=== PATIENT | male | born 1955 | race Caucasian/White ===

== ENCOUNTER → 2018-03-21 | Outpatient (CLI) | payer BC, MEDICARE ==
--- NOTE | 2018-03-21 11:33 | XR ---
EXAMINATION TYPE: XR cervical spine comp DATE OF EXAM: 03/21/2018 COMPARISON: NONE HISTORY: Left shoulder numbness TECHNIQUE: Four views are submitted. FINDINGS: The odontoid is intact. There are no compression deformities. The prevertebral soft tissue structur es are within normal limits. Hypertrophic change and degenerative disc disease at levels C3-T1. Ther e is facet arthropathy. Foraminal encroachment C3-4 and C4-5 and C5-C6 bilaterally. IMPRESSION: 1. Multilevel degenerative disc disease and facet arthropathy with foraminal encroachment. Recommend follow-up MRI.
--- NOTE | 2018-03-21 11:34 | XR ---
EXAMINATION TYPE: XR thoracic spine complete DATE OF EXAM: 03/21/2018 COMPARISON: NONE HISTORY: Numbness Alignment is anatomic. There is no compression deformities. Vertebral body height and disc interspa alec are maintained. Multilevel hypertrophic change and degenerative disc disease noted. No compressi on deformities. Curvature the spine noted. Mild diffuse osteopenia. IMPRESSION: 1. Multilevel degenerative disc disease.
--- NOTE | 2018-03-21 11:35 | XR ---
EXAMINATION TYPE: XR chest 2V DATE OF EXAM: 03/21/2018 COMPARISON: NONE TECHNIQUE: PA and lateral views submitted. HISTORY: Pain and numbness FINDINGS: The lungs are clear and there is no pneumothorax, pleural effusion, or focal pneumonia. Hypertrophi c and degenerative disc disease of the spine noted. Hyperinflation suggests COPD. IMPRESSION: 1. No acute process.
== END | disposition home or self-care (01) ==
LOC: RADXRMAIN 10:37
PROVIDERS: ATTEND Internal Medicine Geriatric Medicine
DX: M51.34 Other intervertebral disc degeneration, thoracic region (principal); M50.33 Other cervical disc degeneration, cervicothoracic region; M46.92 Unspecified inflammatory spondylopathy, cervical region
CPT/HCPCS: 71046; 72050; 72072

== ENCOUNTER → 2021-02-04 | Outpatient (CLI) | payer MEDICARE ==
[~2021-02-04] MED LIST: REGADENOSON 0.4 MG/5 ML SYRINGE IV PRN
--- NOTE | 2021-02-04 11:26 | P.STRESS ---
- Stress Test Note Stress Test Results/Findings: Exam Performed: NM stress lexiscan cardiolite Exam Date: 02/04/21 Reason for Exam: ARRHYTHMIA Height: 6 ft 2 in Weight: 114 kg Protocol: LEXISCAN CARDIOLITE Stage: NA Duration of Exercise: NA Resting Heart Rate: 48 Resting Blood Pressure: 134/80 Maximum Achieved Heart Rate: 74 Maximum Achieved Blood Pressure: 142/79 85% PMHR: 133 100% PMHR: 156 METS: NA Technologist Comment: Stress Test Results/Findings: This is a 65-year-old gentleman with history of hyperglycemia smoking being evaluated for palpitations and cardiac arrhythmia. Stress data. Baseline EKG showed sinus bradycardia with a normal MO interval and QRS duration. Blood pressure at rest is 134/80 with pulse rate of 48. His tory and also Lexiscan was infused. Did not reveal significant changes from the baseline. Final impression: #1. Negative Lexiscan stress test #2. Report on the nuclear images to be provided by the radiologist
--- NOTE | 2021-02-04 13:26 | NM ---
EXAMINATION TYPE: NM stress lexiscan cardiolite DATE OF EXAM: 02/04/2021 COMPARISON: NONE HISTORY: Chest pain TECHNIQUE: After the intravenous administration of 9.8 mCi Tc 99m Sestamibi - Cardiolite resting SPE CT images acquired 45 minutes post injection. The patient received 0.4mg Lexiscan, 24.8 mCi Tc 99m Sestamibi - Stress images obtained [address] injection FINDINGS: Review of stress and rest SPECT images demonstrates no distinct perfusion abnormality. Gated analysi s shows normal wall motion with an estimated left ventricular ejection fraction of 41 %. IMPRESSION: No scintigraphic evidence for reversible ischemia.
--- NOTE | 2021-02-05 10:05 | ECHOS ---
Stress Test Results/Findings: Exam Performed: NM stress lexiscan cardiolite Exam Date: 02/04/21 Reason for Exam: ARRHYTHMIA Height: 6 ft 2 in Weight: 114 kg Protocol: LEXISCAN CARDIOLITE Stage: NA Duration of Exercise: NA Resting Heart Rate: 48 Resting Blood Pressure: 134/80 Maximum Achieved Heart Rate: 74 Maximum Achieved Blood Pressure: 142/79 85% PMHR: 133 100% PMHR: 156 METS: NA Technologist Comment: Stress Test Results/Findings: This is a 65-year-old gentleman with history of hyperglycemia smoking being evaluated for palpitations and cardiac arrhythmia. Stress data. Baseline EKG showed sinus bradycardia with a normal CT interval and QRS duration. Blood pressure at rest is 134/80 with pulse rate of 48. History and also Lexiscan was infused. Did not reveal significant changes from the baseline. Final impression: #1. Negative Lexiscan stress test #2. Report on the nuclear images to be provided by the radiologist OLINDA
== END | disposition home or self-care (01) ==
LOC: RADNMMAIN 08:32
PROVIDERS: ATTEND Internal Medicine Geriatric Medicine
DX: R07.9 Chest pain, unspecified (principal)
CPT/HCPCS: 93017; 78452; A9500; J2785

== ENCOUNTER → 2021-02-26 | Outpatient (CLI) | payer MEDICARE ==
[2021-02-26 19:39] LABS: T4, Free (Free Thyroxine) 1.2 ng/dL (0.80-1.80)
== END | disposition home or self-care (01) ==
LOC: LABWHC1 10:05
PROVIDERS: ATTEND Internal Medicine Interventional Cardiology
DX: I49.9 Cardiac arrhythmia, unspecified (principal)
CPT/HCPCS: 36415; 84439; 84443

== ENCOUNTER 2023-03-21 09:53 | Day surgery (SDC) | payer MEDICARE ==
[~2023-03-21 09:53] MED LIST changes: +LACTATED RINGERS 1,000 ML IV SCH; +LIDOCAINE 1% (10MG/ML) FOR IV START INTRADERMA PRN; -REGADENOSON 0.4 MG/5 ML SYRINGE IV PRN
[2023-03-21] MEDS ORDERED: LACTATED RINGERS 1,000 ML IV ONE (10:30)
[2023-03-21 10:40] VITALS: RESP 16; TEMP 97.4
[2023-03-21] MEDS ORDERED: PROPOFOL 10 MG/ML 20 ML VIAL IV ONE (11:17)
--- NOTE | 2023-03-21 11:37 | P.PCN ---
Date of Procedure: 03/21/23 Procedure(s) Performed: BRIEF HISTORY: Patient is a 68-year-old pleasant white male scheduled for an elective colonoscopy as a part of screening for colon cancer. PROCEDURE PERFORMED: Colonoscopy with snare polypectomy. PREOPERATIVE DIAGNOSIS: Screening for colon cancer. IV sedation per Anesthesia. PROCEDURE: After informed consent was obtained, the patient, was brought into the endoscopy unit. IV sedation was administered by Anesthesia under continuous monitoring. Digital rectal examination was normal. Initially the Olympus CF-160 flexible video colonoscope was then inserted in the rectum, gradually advanced into the cecum without any difficulty. Careful examination was performed as the scope was gradually being withdrawn. Ileocecal valve and the appendiceal orifice were visualized and appeared normal. Prep was excellent. Mucosa of the cecum, ascending colon, transverse colon, appeared normal. In the descending colon there was a 7 mm polyp removed by snare polypectomy. Rest of the descending colon, sigmoid colon, and rectum appeared normal. Retroflexion was performed in the rectum and small internal hemorrhoids were seen. The patient tolerated the procedure well. IMPRESSION: 7 mm descending colon polyp status post polypectomy Small internal hemorrhoids RECOMMENDATIONS: Findings of this examination were discussed with the patient as well as his family. Was advised to follow with the biopsy results. If the biopsy results adenoma he can have a repeat colonoscopy in 5 years.
[2023-03-21 12:12] VITALS: BP 114/66; PULSE 52
== END 2023-03-21 12:14 | disposition home or self-care (01) ==
LOC: ORWHC2ENDO 09:53
PROVIDERS: ATTEND Internal Medicine Gastroenterology
DX: Z12.11 Encounter for screening for malignant neoplasm of colon (principal); D12.4 Benign neoplasm of descending colon; K64.8 Other hemorrhoids; Z79.82 Long term (current) use of aspirin; Z79.899 Other long term (current) drug therapy; Z98.890 Other specified postprocedural states
CPT/HCPCS: 88305; 45385; J2704